=== PATIENT | female | born 1960 | race American Indian/Alaskan Native ===

== ENCOUNTER 2021-10-08 07:18 | Emergency (ER) | payer SELFPAY ==
[2021-10-08] MEDS ORDERED: KETOROLAC 30 MG/1 ML INJ IV ONE (07:49)
[2021-10-08] MEDS ORDERED: fentaNYL 100 MCG/2 ML INJ IV ONE (07:49)
--- NOTE | 2021-10-08 07:54 | Emergency Department Report ---
HPI - General Chief Complaint: Extremity Injury, Upper Time Seen by Provider: 10/08/21 07:38 - HPI HPI: Room 4 The patient is a 61-year-old female present with a chief complaint of right shoulder pain after fall. Patient states she is visiting from [place] and this morning she got up to go to the bathroom and accidentally tripped and fell into the tub. Patient complains of pain in her right upper extremity/shoulder since the fall. Patient currently gives her pain score of 8-9/10. Patient denies loss of consciousness. Patient was administered fentanyl 100 mcg by EMS prior to arrival ED Past Medical Hx - Past Medical History Previous Medical History?: No - Surgical History Additional Surgical History: Right rotator cuff surgery (approximately 2011) - Family History Family history: no significant - Social History Smoking Status: Never Smoker Substance Use Type: None (Denies illicit drug use) - Medications Home Medications: Home Medications Medication Instructions Recorded Confirmed Last Taken Type HYDROcodone/APAP 5-325 [Warren 1 - 2 each PO Q6HR PRN #14 tablet 10/08/21 Unknown Rx 5/325] Ibuprofen [Motrin 800 MG tab] 800 mg PO Q8HR PRN #20 tablet 10/08/21 Unknown Rx ED Review of Systems ROS: Stated complaint: RT ARM DISLOCATION Other details as noted in HPI Constitutional: no symptoms reported Eyes: denies: eye pain ENT: denies: throat pain Respiratory: no symptoms reported Cardiovascular: denies: chest pain Endocrine: no symptoms reported Gastrointestinal: denies: abdominal pain Genitourinary: denies: urgency Musculoskeletal: arthralgia, myalgia Neurological: denies: headache Physical Exam - Physical Exam Vital Signs: Vital Signs 10/08/21 07:19 Temperature 98.8 F Pulse Rate 78 Respiratory 16 Rate Blood Pressure 138/84 [Left] O2 Sat by Pulse 98 Oximetry Physical Exam: GENERAL: The patient is well-developed well-nourished female lying on stretcher not appearing to be in acute distress. [] HEENT: Normocephalic. Atraumatic. Extraocular motions are intact. Patient has moist mucous membranes. NECK: Supple. Trachea midline CHEST/LUNGS: Clear to auscultation. There is no respiratory distress noted. HEART/CARDIOVASCULAR: Regular. There is no tachycardia. There is no gallop rub or murmur. ABDOMEN: Abdomen is soft, nontender. Patient has normal bowel sounds. There is no abdominal distention. SKIN: There is no rash. There is no edema. There is no diaphoresis. NEURO: The patient is awake, alert, and oriented. The patient is cooperative. The patient has no focal neurologic deficits. The patient has normal speech. GCS 15 MUSCULOSKELETAL: There is tenderness to the right shoulder and mild discomfort to palpation of the right forearm. No obvious deformities appreciated ED Course Vital Signs 10/08/21 07:19 Temperature 98.8 F Pulse Rate 78 Respiratory 16 Rate Blood Pressure 138/84 [Left] O2 Sat by Pulse 98 Oximetry ED Medical Decision Making - Radiology Data Radiology results: report reviewed (Right shoulder x-ray, right forearm x-ray), image reviewed (Right shoulder x-ray, right forearm x-ray) interpreted by me: Right shoulder x-ray-no fracture, no dislocation. [facility] [address] [place] [address] XRay Report Signed Patient: ZORAIDA PITT MR#: [id number] 35 : 1960 Acct:[id number] Age/Sex: 61 / F ADM Date: 10/08/21 Loc: ED Attending Dr: Ordering Physician: JERILYN RUFF MD Date of Service: 10/08/21 Procedure(s): XR shoulder 2+V RT Accession Number(s): [id number] cc: JERILYN RUFF MD Fluoro Time In Minutes: RIGHT SHOULDER 3 VIEW(S) INDICATION / CLINICAL INFORMATION: Pain after fall. COMPARISON: None available. FINDINGS: BONES / JOINT(S): No acute fracture or subluxation. No significant arthritis. Mild widening of the acromioclavicular joint. There is an os acromiale. SOFT TISSUES: No significant abnormality. ADDITIONAL FINDINGS: None. IMPRESSION: 1. Mild widening of the AC joint. Correlation for AC joint separation is recommended. 2. Os acromiale. 3. No acute displaced osseous fracture. Signer Name: Jamari Gomez MD Signed: 10/08/2021 8:28 AM Workstation Name: [id number] Transcribed By: Dictated By: JAMARI GOMEZ MD Electronically Authenticated By: JAMARI GOMEZ MD Signed Date/Time: 10/08/21827 DD/ 4 TD/TT: [facility] [address] [place] [address] XRay Report Signed Patient: ZORAIDA PITT MR#: [id number] 35 : 1960 Acct:[id number] Age/Sex: 61 / F ADM Date: 10/08/21 Loc: ED Attending Dr: Ordering Physician: JERILYN RUFF MD Date of Service: 10/08/21 Procedure(s): XR forearm RT Accession Number(s): [id number] cc: JERILYN RUFF MD Fluoro Time In Minutes: RIGHT FOREARM 3 VIEW(S) INDICATION / CLINICAL INFORMATION: Pain after fall COMPARISON: None available. FINDINGS: BONES / JOINT(S): No acute fracture or subluxation. There are degenerative changes at the thumb MCP joint. SOFT TISSUES: There is a small 1 mm density within the soft tissues of the dorsal wrist, of uncertain etiology. ADDITIONAL FINDINGS: None. IMPRESSION: 1. No acute osseous fracture. Signer Name: Jamari Gomez MD Signed: 10/08/2021 8:25 AM Workstation Name: [id number] Transcribed By: Dictated By: JAMARI GOMEZ MD Electronically Authenticated By: JAMARI GOMEZ MD Signed Date/Time: 10/08/21824 DD/ 2 TD/TT: - Differential Diagnosis Humerus fracture, shoulder dislocation, right shoulder contusion, rotator c Critical care attestation.: If time is entered above; I have spent that time in minutes in the direct care of this critically ill patient, excluding procedure time. ED Disposition Clinical Impression: Right shoulder pain, Separation of right acromioclavicular joint Disposition: HOME / SELF CARE / HOMELESS Is pt being admited?: No Does the pt Need Aspirin: No Condition: Stable Instructions: Acromioclavicular Separation, Shoulder Pain Additional Instructions: Return to the emergency department should you develop worsening symptoms, inability to tolerate food or liquids, high fever or any other concerns Prescriptions: Ibuprofen [Motrin 800 MG tab] 800 mg PO Q8HR PRN #20 tablet PRN Reason: Pain, Moderate (4-6) HYDROcodone/APAP 5-325 [Warren 5/325] 1 - 2 each PO Q6HR PRN #14 tablet PRN Reason: Pain Referrals: ANALILIA FLYNN MD [Staff Physician] - 3-5 Days (Dr. Flynn is an orthopedic surgeon. Please follow-up with him for further evaluation) Time of Disposition: 08:47
--- NOTE | 2021-10-08 08:30 | XRay Report ---
RIGHT FOREARM 3 VIEW(S) INDICATION / CLINICAL INFORMATION: Pain after fall COMPARISON: None available. FINDINGS: BONES / JOINT(S): No acute fracture or subluxation. There are degenerative changes at the thumb MCP j oint. SOFT TISSUES: There is a small 1 mm density within the soft tissues of the dorsal wrist, of uncertain etiology. ADDITIONAL FINDINGS: None. IMPRESSION: 1. No acute osseous fracture. Signer Name: Kevin Gomez MD Signed: 10/08/2021 8:25 AM Workstation Name: [email or web address]
--- NOTE | 2021-10-08 08:32 | XRay Report ---
RIGHT SHOULDER 3 VIEW(S) INDICATION / CLINICAL INFORMATION: Pain after fall. COMPARISON: None available. FINDINGS: BONES / JOINT(S): No acute fracture or subluxation. No significant arthritis. Mild widening of the ac romioclavicular joint. There is an os acromiale. SOFT TISSUES: No significant abnormality. ADDITIONAL FINDINGS: None. IMPRESSION: 1. Mild widening of the AC joint. Correlation for AC joint separation is recommended. 2. Os acromiale. 3. No acute displaced osseous fracture. Signer Name: Kevin Gomez MD Signed: 10/08/2021 8:28 AM Workstation Name: [email or web address]
[2021-10-08 08:56] VITALS: BP 136/58
== END 2021-10-08 09:38 | disposition home or self-care (01) ==
LOC: ED 07:18
DX: S43.101A Unspecified dislocation of right acromioclavicular joint, initial encounter (principal); Z98.890 Other specified postprocedural states; Z88.0 Allergy status to penicillin; W18.39XA Other fall on same level, initial encounter; Y93.89 Activity, other specified; Y92.89 Other specified places as the place of occurrence of the external cause; Y99.8 Other external cause status
CPT/HCPCS: 73030; 73090; 96374; 96375; 99284; J1885; J3010